=== PATIENT | male | born 1995 | race African-American/Black ===

== ENCOUNTER 2024-04-13 14:20 | Emergency (ER) | payer MEDICAID ==
[~2024-04-13] VITALS: Ht 188 cm; Wt 91.0 kg
[2024-04-13 14:22] VITALS: O2SAT 99
[2024-04-13] MEDS ORDERED: CYCL10TA21 MT (18:34)
[2024-04-13] MEDS ORDERED: NAPR-1486 MT (18:34)
[2024-04-13 18:49] VITALS: BP 133/85; PULSE 50; RESP 16; TEMP 36.78072; O2SAT 99
== END 2024-04-13 18:51 | disposition home or self-care (01) ==
LOC: ER 14:20
DX: S39.012A Strain of muscle, fascia and tendon of lower back, initial encounter (principal); Z79.1 Long term (current) use of non-steroidal anti-inflammatories (NSAID); V43.52XA Car driver injured in collision with other type car in traffic accident, initial encounter; Y93.89 Activity, other specified; Y92.410 Unspecified street and highway as the place of occurrence of the external cause; Y99.8 Other external cause status
CPT/HCPCS: 99283